=== PATIENT | female | born 1995 | race Caucasian/White ===

== ENCOUNTER 2016-03-11 00:33 | Emergency (ER) | payer BC, OTHER ==
--- NOTE | 2016-03-11 01:07 | ED ---
Shane Faust SooYoung, scribed for Prasanna Bower MD on 03/11/16 at 0046 . Substance Abuse/Use - HPI Summary HPI Summary: LEVEL 5 CAVEAT: HPI LIMITED DUE TO PT CONDITION, ETOH INTOXICATION. A 20 y/o F ALEXIS presents to ED with EtOH intoxication. EMS found pt in bathroom , friends could not confirm what she had been drinking. - History Of Current Complaint Stated Complaint: ALCOHOL CONSUMPTION Time Seen by Provider: 03/11/16 00:36 Hx Obtained From: EMS - Allergies/Home Medications Allergies/Adverse Reactions: Allergies Allergy/AdvReac Type Severity Reaction Status Date / Time No Known Allergies Allergy Verified 03/11/16 00:50 PMH/Surg Hx/FS Hx/Imm Hx - Social History Occupation: Student Alcohol Use: Occasionally Substance Use Type: Reports: Marijuana Substance Use Comment - Amount & Last Used: daily Smoking Status (MU): Smoker, Current Status Unknown - Additional Comments History Additional Comments: LEVEL 5 CAVEAT: PMHx / FHx / SHx LIMITED DUE TO PT CONDITION, ETOH INTOXICATION. Review of Systems - ROS Summary Review of Systems Summary: LEVEL 5 CAVEAT: ROS LIMITED DUE TO PT CONDITION, ETOH INTOXICATION. All Other Systems Reviewed And Are Negative: Yes Physical Exam Triage Information Reviewed: Yes Vital Signs On Initial Exam: Initial Vitals Temp Pulse Resp BP Pulse Ox 97.1 F 88 16 103/65 98 03/11/16 00:42 03/11/16 00:42 03/11/16 00:42 03/11/16 00:42 03/11/16 00:42 Vital Signs Reviewed: Yes Appearance: Positive: Well-Appearing, No Pain Distress Skin: Positive: Warm Eyes: Positive: NOEL ENT: Positive: Hearing grossly normal Neck: Positive: Supple Respiratory/Lung Sounds: Positive: Clear to Auscultation, Breath Sounds Present Cardiovascular: Positive: RRR Abdomen Description: Positive: Nontender, No Organomegaly, Soft Bowel Sounds: Positive: Present Musculoskeletal: Positive: Strength/ROM Intact Neurological: Positive: Alert, Oriented to Person Place, Time, Normal Gait Diagnostics - Vital Signs Vital Signs Temp Pulse Resp BP Pulse Ox 03/11/16 00:42 97.1 F 88 16 103/65 98 - Laboratory Lab Statement: Any lab studies that have been ordered have been reviewed, and results considered in the medical decision making process. Course/Dx - Diagnoses Provider Diagnoses: Alcohol intoxication Discharge - Discharge Plan Condition: Stable Disposition: HOME Patient Education Materials: Alcohol Intoxication (ED) Referrals: [facility] [Primary Care Provider] - The documentation as recorded by the Shane serrano SooYoung accurately reflects the service I personally performed and the decisions made by me, Prasanna Bower MD.
[2016-03-11 02:06] VITALS: BP 99/61
== END 2016-03-11 06:54 | disposition home or self-care (01) ==
LOC: ED 00:33
DX: F10.129 Alcohol abuse with intoxication, unspecified (principal); Y90.7 Blood alcohol level of 200-239 mg/100 ml; Z72.0 Tobacco use
CPT/HCPCS: 36415; 80320; 99283; G0480

== ENCOUNTER 2016-11-06 19:11 | Emergency (ER) | payer BC ==
[2016-11-06 22:15] LABS: Hematocrit 39 % (35-47); Hemoglobin 13.2 g/dl (12.0-16.0); Mean Corpuscular HGB Conc 34 g/dl (31-36); Mean Corpuscular Hemoglobin 30 pg (27-31); Mean Corpuscular Volume 86 fL (80-97); Mean Platelet Volume 7 um3 (7.4-10.4); Red Blood Count 4.49 10^6/ul (4.0-5.4); Red Cell Distribution Width 13 % (10.5-15); White Blood Count 8.2 10^3/ul (3.5-10.8)
[2016-11-06 22:30] LABS: ALT 8 U/L (7-52); AST 14 U/L (13-39); Albumin 4.2 g/dL (3.2-5.2); Alkaline Phosphatase 43 U/L (34-104); Anion Gap 8 mmol/L (2-11); BUN/Creatinine Ratio 16.9 (8-20); Blood Urea Nitrogen 11 mg/dL (6-24); CO2 Carbon Dioxide 26 mmol/L (22-32); Calcium 8.9 mg/dL (8.6-10.3); Chloride 102 mmol/L (101-111); EGFR African American 149.4 (>60); EGFR Non-African American 116.2 (>60); Globulin 2.4 g/dL (2-4); Glucose 73 mg/dL (70-100); Lipase 13 U/L (11.0-82.0); Potassium 3.4 mmol/L (3.5-5.0); Sodium 136 mmol/L (133-145); Total Protein 6.6 g/dL (6.4-8.9)
--- NOTE | 2016-11-06 23:25 | ED ---
GI/ HPI - HPI Summary HPI Summary: 21F presents with pelvic pain for 2 hours. She states that she had bilateral lower quadrant pain greatest in LLQ but that resolved. She denies any fever. She denies any dysuria, hematuria, flank pain, urgency, frequency. She had neg test at urgent care. She did not take anything for pain. She has never had this pain before. She denies any previous abdominal surgeries. She denies any vaginal discharge. She denies any history of STDs. - History of Current Complaint Chief Complaint: EDAbdPain Time Seen by Provider: 11/06/16 21:27 Stated Complaint: ABD PAIN-SENT FROM [facility] Pain Intensity: 8 - Allergy/Home Medications Allergies/Adverse Reactions: Allergies Allergy/AdvReac Type Severity Reaction Status Date / Time No Known Allergies Allergy Verified 03/11/16 00:50 PMH/Surg Hx/FS Hx/Imm Hx Endocrine/Hematology History: Denies: Hx Diabetes Cardiovascular History: Denies: Hx Hypertension Infectious Disease History: No Infectious Disease History: Denies: Traveled Outside the [place] in Last 30 Days - Family History Known Family History: Negative: Diabetes - Social History Alcohol Use: Occasionally Substance Use Type: Reports: Marijuana Substance Use Comment - Amount & Last Used: daily Smoking Status (MU): Smoker, Current Status Unknown Review of Systems Negative: Fever Negative: Chest Pain Negative: Shortness Of Breath Positive: Abdominal Pain All Other Systems Reviewed And Are Negative: Yes Physical Exam Triage Information Reviewed: Yes Vital Signs On Initial Exam: Initial Vitals Temp Pulse Resp BP Pulse Ox 98.3 F 57 18 120/75 96 11/06/16 19:49 11/06/16 19:49 11/06/16 19:49 11/06/16 19:49 11/06/16 19:49 Vital Signs Reviewed: Yes Appearance: Positive: Well-Appearing Skin: Positive: Warm, Dry Head/Face: Positive: Normal Head/Face Inspection Eyes: Positive: Normal, EOMI, NOEL, Conjunctiva Clear ENT: Positive: Normal ENT inspection, Pharynx normal, TMs normal Respiratory/Lung Sounds: Positive: Clear to Auscultation, Breath Sounds Present Cardiovascular: Positive: Normal, RRR Abdomen Description: Positive: Nontender, Soft Bowel Sounds: Positive: Present - [place] Coma Scale Coma Scale Total: 15 Diagnostics - Vital Signs Vital Signs Temp Pulse Resp BP Pulse Ox 11/06/16 19:49 98.3 F 57 18 120/75 96 - Laboratory Lab Results: Lab Results 11/06/16 11/06/16 Range/Units 22:04 22:04 WBC 8.2 (3.5-10.8) 10^3/ul RBC 4.49 (4.0-5.4) 10^6/ul Hgb 13.2 (12.0-16.0) g/dl Hct 39 (35-47) % MCV 86 (80-97) fL MCH 30 (27-31) pg MCHC 34 (31-36) g/dl RDW 13 (10.5-15) % Plt Count 255 (150-450) 10^3/ul MPV 7 L (7.4-10.4) um3 Neut % (Auto) 60.3 (38-83) % Lymph % (Auto) 30.8 (25-47) % [place] % (Auto) 5.5 (1-9) % Eos % (Auto) 2.5 (0-6) % Baso % (Auto) 0.9 (0-2) % Absolute Neuts (auto) 4.9 (1.5-7.7) 10^3/ul Absolute Lymphs (auto) 2.5 (1.0-4.8) 10^3/ul Absolute Monos (auto) 0.4 (0-0.8) 10^3/ul Absolute Eos (auto) 0.2 (0-0.6) 10^3/ul Absolute Basos (auto) 0.1 (0-0.2) 10^3/ul Absolute Nucleated RBC 0.01 10^3/ul Nucleated RBC % 0.1 Sodium 136 (133-145) mmol/L Potassium 3.4 L (3.5-5.0) mmol/L Chloride 102 (101-111) mmol/L Carbon Dioxide 26 (22-32) mmol/L Anion Gap 8 (2-11) mmol/L BUN 11 (6-24) mg/dL Creatinine 0.65 (0.51-0.95) mg/dL Est GFR ( Amer) 149.4 (>60) Est GFR (Non-Af Amer) 116.2 (>60) BUN/Creatinine Ratio 16.9 (8-20) Glucose 73 (70-100) mg/dL Calcium 8.9 (8.6-10.3) mg/dL Total Bilirubin 0.60 (0.2-1.0) mg/dL AST 14 (13-39) U/L ALT 8 (7-52) U/L Alkaline Phosphatase 43 (34-104) U/L C-React Prot High Sens 1.29 mg/L Total Protein 6.6 (6.4-8.9) g/dL Albumin 4.2 (3.2-5.2) g/dL Globulin 2.4 (2-4) g/dL Albumin/Globulin Ratio 1.8 (1-3) Lipase 13 (11.0-82.0) U/L Beta HCG, Quant < 0.60 mIU/mL Result Diagrams: 11/06/16 22:04 11/06/16 22:04 Lab Statement: Any lab studies that have been ordered have been reviewed, and results considered in the medical decision making process. - Ultrasound No standard instances Ultrasound Interpretation: No Acute Changes Ultrasound Interpretation Completed By: Radiologist ANA Course/Dx - Course Course Of Treatment: 21F presents with pelvic pain for 2 hours. She states that she had bilateral lower quadrant pain greatest in LLQ but that resolved. She denies any fever. She denies any dysuria, hematuria, flank pain, urgency, frequency. She had neg test at urgent care. She did not take anything for pain. She has never had this pain before. She denies any previous abdominal surgeries. She denies any vaginal discharge. She denies any history of STDs. on exam nontender abdomen, will get u/s which normal. labs normal. explained if pain returns to RLQ will need to return for CT. explained only way definitively know not appendicitis is by CT which patient does not want at this time. patient understands and agrees with plan. - Diagnoses Differential Diagnoses - Female: Ovarian Cyst, Ovarian Torsion, Urinary Tract Infection Provider Diagnoses: Abdominal pain Discharge - Discharge Plan Condition: Good Disposition: HOME Patient Education Materials: Acute Abdominal Pain (ED) Referrals: [facility] [Primary Care Provider] - Additional Instructions: Follow up with [facility] in 5 days Return to ED if develop persistent pain in right lower quadrant, fever, or any new or worsening symptoms
[2016-11-06 23:44] VITALS: BP 109/66
[2016-11-07] LABS: Urine Bacteria Absent (Absent); Urine Bilirubin Negative (Negative); Urine Glucose Negative (Negative); Urine Nitrite Negative (Negative)
--- NOTE | 2016-11-07 07:55 | RAD ---
INDICATION: Pelvic and left lower quadrant pain . Beta hCG status unknown COMPARISON: None TECHNIQUE: Longitudinal and transverse transvaginal scans of the pelvis were obtained. FINDINGS: Uterus: The uterus is normal in size. There are no focal masses. The uterus measures 7.4 x 3.1 x 5.0 cm. Endometrial thickness: The endometrial thickness is measured at 0.6 cm. . Free fluid: There is no significant free fluid . Ovaries: The ovaries are normal in size. The right ovary measures 5.1 x 2.8 x 4.2 cm. The left ovary measures 4.4 x 2.4 x 3.1 cm. . Doppler interrogation demonstrates flow to each ovary. Other: Please note that interpretation requires correlation with beta-hCG status. IMPRESSION: NEGATIVE EXAMINATION.
== END 2016-11-06 23:40 | disposition home or self-care (01) ==
LOC: ED 19:11
DX: R10.32 Left lower quadrant pain (principal)
CPT/HCPCS: 36415; 76830; 80053; 81003; 81015; 83690; 84702; 85025; 86141; 87086; 99283